=== PATIENT | male | born 1960 | race Caucasian/White ===

== ENCOUNTER 2018-08-08 19:43 | Emergency (ER) | payer OTHER, MEDICAID, SELFPAY ==
[2018-08-08 19:45] VITALS: BP 179/98; PULSE 90; RESP 16; TEMP 36.9; O2SAT 97; BMI 29.8
--- NOTE | 2018-08-08 20:32 | ED.RN ---
PT WAS CALLED FROM TRIAGE TO TAKE BACK TO ER ROOM 7. PT STATED THAT HAD ALREADY SWALLOWED 4 CUPS OF WATER NOW. PT DRANK WATER IN FRONT OF THIS RN AND DENIED HAVING ANY OTHER DIFFICULTIES SWALLOWING OR BRATHING. THIS RN DID EXPLAIN HE STILL COULD BE SEEN, BUT PT REFUSED AND STATED THAT HE THOUGHT IT WASN'T STUCK ANY LONGER AND THE MEAT HAD PASSED.
--- NOTE | 2018-08-08 20:34 | NURSING ---
PT LEFT AT 2024
== END 2018-08-08 20:25 | disposition left against medical advice (07) ==
LOC: ED 21:01
PROVIDERS: Emergency Provider Emergency Medicine; Family Provider Family Medicine; PCP Family Medicine
DX: K22.2 Esophageal obstruction (principal); Z53.21 Procedure and treatment not carried out due to patient leaving prior to being seen by health care provider

== ENCOUNTER 2019-04-21 18:18 | Emergency (ER) | payer MEDICAID, SELFPAY ==
[2019-04-21 18:19] VITALS: BP 154/89; PULSE 81; RESP 17; TEMP 36.9; O2SAT 97; BMI 31.6
[2019-04-21 18:28] VITALS: RESP 16
--- NOTE | 2019-04-21 18:45 | ED.VIS.GEN ---
History of Present Illness Chief Complaint: Foreign Body Informant: Patient, Family Onset: Today Narrative: Presents for concerns for food obstruction. Reports 5:30 PM was eating sloppy Ganesh sandwich and then lettuce, reports felt something stuck. States he tried drinking fluids Coca-Cola, lettuce was coming up therefore concerns for obstruction of this. Similar symptoms reports approximately a year ago came to the ED however past. He states prior to that few years back had a steak impaction that required EGD. He did not recall the physician's name however reviewing records March [address] Palomo. Reports he followed up as an outpatient for colonoscopy repeat EGD at that time. Patient is edentulous, he reports he cuts his lettuce down and food down small. Remote tobacco history of COPD. Reports uses inhaler only as needed. No other daily medications. States currently sitting there he feels no discomfort. Prior similar symptoms: Yes Past Medical History - Allergies and Home Meds Allergies/Adverse Reactions: Allergies No Known Allergies Allergy (Verified 04/21/19 18:18) Primary Care Physician: Basim Helton MD [Primary Care Provider] - Smoking Status: Former smoker Review of Systems General: Denies: Chills, Fever, Sweats Eyes: Denies: Visual changes - bilaterally, Diplopia ENT: Denies: Rhinorrhea, Sore throat Cardiovascular: Denies: Chest pain, Palpitations Respiratory: Denies: Dyspnea, Cough, Dyspnea on exertion Gastrointestinal: Denies: Abdominal pain, Nausea, Vomiting, Diarrhea, Melena, Hematochezia Genitourinary: Denies: Dysuria, Hematuria, Frequency Musculoskeletal: Denies: Back pain, Extremity Pain Skin: Denies: Rash, Wounds Neurological: Denies: Headache, Weakness, Numbness Physical Exam Vital Signs/Narrative: Vital Signs Temp Pulse Resp BP Pulse Ox 04/21/19 18:28 16 04/21/19 18:19 98.5 F 81 17 154/89 H 97 Inital Vital Signs reviewed: Yes General: Well nourished, Well developed, No Acute Distress Head: Normocephalic, Atraumatic Eyes: Perrl, EOMI ENT: Moist mucous membranes, No rhinorrhea, - - Edentuous, airway patent, no distress. No stridor. Neck: Supple, Nontender Cardiovascular: Regular rate, Regular rhythm, No murmurs Respiratory: No distress, CTA bilaterally, Chest nontender Abdomen: Soft, Nontender, Nondistended, Normal bowel sounds Back: Nontender, Normal Inspection Extremities: Nontender, No edema Skin: Normal color, No rash Neurological: Alert, Oriented x3, Cranial nerves II-XII grossly intact, Normal Strength, Normal Sensation Psychological: Normal affect, Normal Mood Diagnostic/Tx/Re-eval - Medical Decision Making Patient nontoxic, no acute distress. Patient monitored, was allowed to drink 2 carbonated drinks in the ED, there was no vomiting afterwards. He had occasional burping. Patient tolerating 2 drains, no concerns for complete obstruction. Could be residuals discussed with patient continuing slow drinks at home and soft foods. With him having endoscopy by GI previously who are not available discussed follow-up with him he like to follow-up with [facility] therefore given Dr. Julio's information who is dry wall installations mechanic. Signs and symptom discussed return, he will be placed on omeprazole daily. All questions were answered. ED Disposition - Plan for ED Patient: Disposition: Home or Assisted Living Diagnosis: Food impaction of esophagus Instructions: ESOPHAGEAL FOREIGN BODY, Resolved Prescriptions: Omeprazole 40 mg PO DAILY #30 capsule. Transmission Status: P[id number] Referrals: Jeanna Julio MD [STAFF PHYSICIAN] - 3-5 Days Basim Helton MD [Primary Care Provider] -
[2019-04-21 19:09] VITALS: RESP 16
--- NOTE | 2019-04-21 19:09 | ED.RN ---
PATIENT TOLERATING COKE. ABLE TO KEEP IT DOWN. DR Jack DEL CID NOTIFIED.
== END 2019-04-21 19:10 | disposition home or self-care (01) ==
PROVIDERS: Emergency Provider Emergency Medicine; Family Provider Family Medicine; PCP Family Medicine
DX: T18.128A Food in esophagus causing other injury, initial encounter (principal); X58.XXXA Exposure to other specified factors, initial encounter; Y93.9 Activity, unspecified; Y92.9 Unspecified place or not applicable; Y99.9 Unspecified external cause status; J44.9 Chronic obstructive pulmonary disease, unspecified; Z87.891 Personal history of nicotine dependence
CPT/HCPCS: 99282

== ENCOUNTER 2025-03-04 11:01 | Emergency (ER) | payer OTHER, SELFPAY ==
[2025-03-04] VITALS (9 sets, daily range): BP systolic 90–149; BP diastolic 57–78; PULSE 55–78; RESP 14–16; TEMP 36.1–36.6; O2SAT 95–100; BMI 27.3
--- NOTE | 2025-03-04 11:53 | EDS_ITS ---
HPI HPI - GI History of Present Illness Chief Complaint: Foreign Body Detail of Chief Complaint: Esophageal food impaction Informant: patient Narrative Narrative: Patient presents to the emergency department with complaint of of inability to swallow. Patient states that he was eating dinner last night and had some broccoli with mac & cheese and a bratwurst when he felt that food got stuck in his throat. Patient is a dentulous. Patient states that he had a similar episode about a year ago but while waiting in triage his food impaction resolved therefore he did not require any type of intervention. Patient states that he was able of get some of the food to come up. He tried to drink Sprite but could not. He was able to sleep last night. But this morning again he is unable to eat breakfast or swallow any food or drink. [facility] Medical History (Updated 03/04/25 @ 12:[address] Abdiel Mehta, ) COPD (chronic obstructive pulmonary disease) Hypertension Home Medications ?Medication ?Instructions ?Recorded ?Last Taken ?Type albuterol sulfate 90 mcg/actuation 2 puff inhalation B ID PRN 07/12/16 Unknown History aerosol inhaler (Ventolin HFA) Shortness Of Breath omeprazole 40 mg capsule,delayed 40 mg PO DAILY ##30 0 04/21/19 Unknown Rx release Allergy/AdvReac Type Severity Reaction Status Date / Time No Known Allergies Allergy Verified 03/04/25 11:03 Social History Smoking Status: Former smoker ROS ROS ED Review of Systems ROS Unobtainable: other Constitutional Constitutional ED: Reports lethargy; Denies chills, fever(s), sweats or weight loss Eyes Eyes: Denies blurry vision, change in vision or diplopia ENT ENT ED: Denies rhinorrhea or sore throat Cardiovascular Cardiovascular: Denies chest pain, orthopnea or racing heartbeat Respiratory/Chest Respiratory/Chest: Denies cough, dyspnea, dyspnea on exertion, orthopnea or sputum Gastrointestinal Gastrointestinal: Reports other Details: Difficulty swallowing ; Denies abdominal pain, diarrhea, nausea or vomiting Genitourinary Genitourinary ED: Denies dysuria, hematuria or urinary frequency Musculoskeletal Musculoskeletal: Denies arthralgias, back pain, myalgias or neck pain Integumentary Denies abscess, Abrasions or rash Neurologic Neurologic: Denies headache(s) or weakness Psychiatric Psychiatric: Denies anxiety, depression or suicidal thoughts Endocrine Endocrinology: Denies polydipsia, polyphagia or polyuria Hematologic/Lymphatic Hematologic/Lymphatic: Denies easy bleeding, easy bruising or lymphadenopathy Allergic/Immunologic Allergic/Immunologic ED: Denies mouth swelling, tongue swelling or urticaria EXAM Physical Exam Const Vital Signs: 03/04/25 11:02 Temperature 98 F Temperature Source Temporal Pulse Rate 73 Respiratory Rate 14 Blood Pressure 149/72 H Blood Pressure Mean 97 Pulse Ox 98 Oxygen Delivery Method Room Air Positive well nourished and well developed General Appearance ED: well developed and NAD HEENT Reports TM's clear and moist mucous membranes normocephalic and atraumatic; Negative for trauma or tenderness Tympanic Membrane ED: Yes TM's clear Eyes PERRL and EOMs intact bilaterally General Eye ED: Negative for pale conjunctiva or scleral icterus Neck no lymphadenopathy, supple and no JVD General: Negative for tenderness Chest Wall inspection of chest normal and palpation of chest normal Chest: Negative for tenderness Resp normal respiratory effort and clear to auscultation bilaterally Effort and Inspection: Negative for respiratory distress or pain with movement Auscultation: Negative for rhonchi, wheezes or diminished lung sounds Cardio regular rate, regular rhythm, S1 normal heart sound, S2 normal heart sound and no murmurs Peripheral Pulses: pulses 2+ throughout GI normal to inspection, nondistended, normoactive bowel sounds, soft to palpation, non-tender, non-distended and no masses Back/Spine no CVA tenderness and no thoracic nor lumbar tenderness Extremity normal to inspection General Extremety ED: Negative for edema General Extremity: Negative for edema Neuro oriented x3, CN's II-XII intact bilaterally, no sensory deficits noted and gait normal Sensorium / Orientation: awake, alert, oriented to person, oriented to place and oriented to time Motor Exam: strength 5/5 throughout and strength abnormal Psych mental status grossly normal Skin no rashes or lesions noted and no wounds MDM MDM MDM Narrative Medical decision making narrative: Patient presents with esophageal food impaction. I attempted to have the patient drink some cola however he was unable to swallow it and immediately came back up. Discussed case with general surgeon on-call who will be tied up in the OR with multiple acute cases and asked that we contact Dr. Landeros the sanitarian inspector. Dr. Landeros the did call back and is willing to take the patient to endoscopy for an upper scope to relieve the esophageal food impaction. Discharge Plan Dx/Rx/DC Orders Clinical Impression: Esophageal obstruction due to food impaction Disposition Disposition: Acute Care Hospital [facility]
[2025-03-04] MEDS: Glucagon 1 MG/ML Syringe IV (12:00)
[2025-03-04] MEDS: Lactated Ringers 1,000 ML 15 ML IV (12:40)
--- NOTE | 2025-03-04 12:53 | PRE.ANES_ITS ---
ASA Classification* ASA Classification ASA Classification: 3 (COPD, GERD) Assessment & Plan Anesthesia* Anesthesia Assessment Anesthesia Assessment: Discussed sedation and/or anesthesia options, risks, benefits, and alternatives with patient/parents/legal guardian/POA. Questions invited. The patient/parents/legal guardian/POA seems to understand and agrees to proceed with anesthesia plan. Reviewed the physical assessment, medical history, allergy history and patient home medications list prior to surgery/procedure/anesthetic and documented any changes. Performed airway and anesthesia risk assessments. Patient states he has been NPO since 5 PM. Attempted some sprite 2 hours ago, but came right up. Will keep patient in sitting position to reduce risk of aspiration. Patient understands risk of aspiration but would like to proceed without ETT given long NPO status Anesthesia Type Anesthesia Type: MAC History Source History Obtained from:: Patient and Chart Anesthesia Focused Assessment* Temperature: 97.9 F Pulse Rate: 78 Blood Pressure: 146/68 Respiratory Rate: 16 Pulse Ox: 98 Oxygen Delivery Method: Room Air Airway Assessment Mouth opens: >3 cm Mallampati Score: II Teeth Condition: Missing Neck Range of motion (ROM): Full ROM Labs Anesthesia Preop lab: CBC CHEMISTRY COAG Pre-Assessment Diagnosis/Proposed Procedure Planned Operative Procedure(s): EGD / food bolus impactation Anesthesia History 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 When Was Last Pacemaker Check QUESTION #4 FULL TEXT: You/Your Family Experience fever (hyperthermia) with Anesthesia Last Oral Intake Last Oral intake: Last Oral Intake NPO since Meds taken in AM with sips of water? Meds patient instructed to take am of surgery PONV PONV - paraprofessional aide teacher: PONV - paraprofessional aide teacher Female HX of Motion Sickness HX of N/V After Surgery Non-Smoker Duration of Surgery greater than 60 minutes Number of Risk Factors PONV Score Height & Weight Height & Weight: Anesthesia: Height & Weight Height 5 ft 3 in 03/04/25 11:02 Weight: 70.1 kg 03/04/25 11:02 Body Mass Index (BMI) 27.3 11/25/25 11:02 Respiratory Assessment Respiratory Assessment - paraprofessional aide teacher: Respiratory Tract Infection Hx - paraprofessional aide teacher Hx Respiratory Tract Infection STOP Sleep Apnea STOP Sleep Apnea - paraprofessional aide teacher: STOP Sleep Apnea - paraprofessional aide teacher Hx Hypertension Hx Sleep Apnea CPAP BIPAP Do you snore loudly (louder than talking or can be heard Do you often feel tired/ fatigued/ sleepy during daytime? Has anyone observed you stop breathing during sleep? STOP Results QUESTION #5 FULL TEXT : Do you snore loudly (louder than talking or can be heard through closed doors)? 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 Specify any problems Hx of Preganancy in last 3 Months Nurse Filling Out Transfusion & Questions: Date: Time: Patient unable to answer at this time (ie. confused, unrespo /Reproduction History /Reproductive History - paraprofessional aide teacher: /Reproductive Hx- paraprofessional aide teacher Hx Now Gestational Age (in weeks): EDC: Hx Hx Para Hx Section SAB Does the father of the baby or his family experience fever w Father of the baby Malignant Hypertension history comment Active Medications Active Medications: Current Medications Generic Name Dose Route Start Last Admin Trade Name Freq PRN Reason Stop Dose Admin Lactated Ringer's 1,000 mls @ 15 mls/hr 03/04/25 12:45 03/04/25 12:40 IV 15 mls/hr .Q48H TREVOR Administration PFSH Medical History (Updated 03/04/25 @ 12:[address] Abdiel Mehta, ) COPD (chronic obstructive pulmonary disease) Hypertension Home Medications ?Medication ?Instructions ?Recorded ?Last Taken ?Type albuterol sulfate 90 mcg/actuation 2 puff inhalation B ID PRN 07/12/16 Unknown History aerosol inhaler (Ventolin HFA) Shortness Of Breath omeprazole 40 mg capsule,delayed 40 mg PO DAILY ##30 0 04/21/19 Unknown Rx release Allergy/AdvReac Type Severity Reaction Status Date / Time No Known Allergies Allergy Verified 03/04/25 11:03 Social History Smoking Status: Current every day smoker tobacco type: cigarettes Review of Systems (Anesthesia) ROS Narrative System reviewed and no additional complaints, except as documented. Physical Exam Const alert, oriented x3 and average body habitus Resp normal respiratory effort, normal air movement and clear to auscultation bilaterally Cardio regular rate, regular rhythm and no murmurs; Negative for diaphoretic
--- NOTE | 2025-03-04 13:15 | EGD_PTH ---
PATIENT: SMAUEL HUNTER LOC: ED U#:[id number] AGE/SX: 64/M ROOM: RE03/04/[address]: Dr. Abdiel Mehta DO : 1960 BED: DIS: 03/04/2025 SPEC #: [id number] RECD: 03/04/25 18:09 STATUS: CHERI RADHA #: [id number] TANISHA: 03/04/25 13:[address]: Abdiel Mehta DEPT: SURGICAL PATHOLOGY RECD BY: Jerry Calles ENTERED: 03/05/25 10:23 SP TYPE: EGD BIOPSY ARELIS DR: Dr. Basim Helton MD Tissues: A - Gastric mucous membrane B - Duodenum, NOS C - Esophagus, NOS Procedures: Surgery Specimen Level IV HEADER OPERATION: EGD, foreign body removal PRE-OP DIAGNOSIS: Esophageal obstruction due to food impaction TISSUE SUBMITTED: A- Gastric body biopsy, B- Duodenum biopsy, C- Distal esophagus biopsy MICROSCOPIC DIAGNOSIS A. Stomach, body, biopsy: - Oxyntic mucosa with mild chronic inflammation. - Negative for Helicobacter-like organisms (H&E). B. Small intestine, duodenum, biopsy: - Tyler gland hyperplasia with acute inflammation and gastric mucin cell metaplasia, suggestive of peptic injury. - Negative for increased intraepithelial lymphocytes. C. Esophagus, distal, biopsy: - Squamous mucosa with reactive changes and > 25 eosinophils per high power field. - Columnar mucosa with goblet cell metaplasia - see note. Note: The diagnosis depends on the location of the biopsy and the extent of the mucosal irregularity. If the biopsy originates from the tubular esophagus and the mucosal irregularity extends at least 1 cm above the top of the gastric folds, this represents Morrison mucosa. If the biopsy originates from the gastric cardia and/or the mucosal irregularity is less than 1 cm in extent, this represents intestinal metaplasia. MICROSCOPIC DESCRIPTION Slides are reviewed. GROSS DESCRIPTION A. Received in fixative is one container labeled with the patient's name and designated Gastric body biopsy. The specimen consists of multiple irregular fragments of lange tissue that in aggregate measure 1.2 x 0.5 x 0.1 cm. The specimen is totally submitted in one cassette. B. Received in fixative is one container labeled with the patient's name and designated Duodenum biopsy. The specimen consists of three irregular fragments of lange tissue that measure 0.3 to 0.5 cm. The specimen is totally submitted in one cassette. C. Received in fixative is one container labeled with the patient's name and designated Distal esophagus biopsy. The specimen consists of multiple irregular fragments of lange tissue that in aggregate measure 1.1 x 0.4 x 0.2 cm. The specimen is totally submitted in one cassette. SD 03/05/2025 CPT:28808p3
--- NOTE | 2025-03-04 13:42 | PCM.HP.STD ---
HPI - General General Date of Admission: 03/04/25 Date of Service: 03/04/25 Chief Complaint: Food impaction HPI Narrative SAMUEL HUNTER, is a 64 M who presents to the emergency department with complaint of of inability to swallow. Patient states that he was eating dinner last night and had some broccoli with mac & cheese and a bratwurst when he felt that food got stuck in his throat. Patient is a dentulous. Patient states that he had a similar episode about a year ago but while waiting in triage his food impaction resolved therefore he did not require any type of intervention. Patient states that he was able of get some of the food to come up. He tried to drink Sprite but could not. He was able to sleep last night. But this morning again he is unable to eat breakfast or swallow any food or drink. Patient had an upper endoscopy approximately 12 years ago for esophageal food impaction which had to be removed at that time. He does not take any medicines on a daily basis. He says that he does not have reflux on a daily basis. [facility] Medical History COPD (chronic obstructive pulmonary disease) Hypertension Home Medications ?Medication ?Instructions ?Recorded ?Last Taken ?Type albuterol sulfate 90 mcg/actuation 2 puff inhalation BID PRN 07/12/16 Unknown History aerosol inhaler (Ventolin HFA) Shortness Of Breath omeprazole 40 mg capsule,delayed 40 mg PO DAILY ##30 04/21/19 Unknown Rx release Allergy/AdvReac Type Severity Reaction Status Date / Time No Known Allergies Allergy Verified 03/04/25 11:03 Social History Smoking Status: Current every day smoker tobacco type: cigarettes ROS Constitutional Constitutional: Denies fatigue, fever(s), poor appetite, weight gain or weight loss Gastrointestinal Gastrointestinal: Denies belching, bloating, change in bowel habits, change in stool character, chewing difficulty, coffee ground emesis, constipation, cramping, diarrhea, dyspepsia, dysphagia, early satiety, excessive flatus, fecal incontinence, heartburn, hematemesis, hematochezia, hemorrhoids, loose stools, melena, nausea, odynophagia, rectal bleeding, tenesmus, vomiting or weight changes Vital Signs Vital Signs Vital Signs: 03/04/25 11:02 03/04/25 12:29 03/04/25 12:55 Temperature 98 F 97.9 F 97.9 F Temperature Source Temporal Pulse Rate 73 78 78 Respiratory Rate 14 16 16 Blood Pressure 149/72 H 146/68 H 146/68 H Blood Pressure Mean 97 94 Pulse Ox 98 98 98 Oxygen Delivery Method Room Air Room Air Weight Weight: 154 lb 8.705 oz Body Mass Index (BMI) 27.3 Physical Exam Const alert, oriented x3, no apparent distress and healthy appearing General Appearance: cooperative GI normal to inspection, nondistended, normoactive bowel sounds, soft to palpation, non-tender and non-distended Percussion: normal to percussion Rectal Exam: deferred Assessment & Plan Assessment/Plan (1) Esophageal obstruction due to food impaction: PLAN: Patient will undergo esophageal food disimpaction. He was explained alternatives, risk and benefits include not withstanding bleeding, infection, sepsis, perforation, need for emergent or to . He will have an ASA of 3.
--- NOTE | 2025-03-04 14:17 | OP.EGD_ITS ---
Patient Name: Rajeev Abdi Procedure Date: 03/04/2025 1:42 PM Date of : 1960 Age: 64 Procedure: Upper GI endoscopy Indications: Dysphagia, Foreign body in the esophagus Providers: Tony Landeros DO Medicines: Monitored Anesthesia Care Patient Profile: This is a 64 year old male. Refer to note in patient chart for documentation of history and physical. Patient has symptoms of dysphagia with both liquids and solids, chronic heartburn, chronic nausea, acute regurgitation and acute vomiting. Complications: No immediate complications. Procedure: Pre-Anesthesia Assessment: - Prior to the procedure, a History and Physical was performed, and patient medications and allergies were reviewed. The patient is competent. The risks and benefits of the procedure and the sedation options and risks were discussed with the patient. All questions were answered and informed consent was obtained. Patient identification and proposed procedure were verified by the physician in the pre-procedure area. Mental Status Examination: alert and oriented. Airway Examination: normal oropharyngeal airway and neck mobility. Respiratory Examination: clear to auscultation. CV Examination: normal. Prophylactic Antibiotics: The patient does not require prophylactic antibiotics. Prior Anticoagulants: The patient has taken no anticoagulant or antiplatelet agents. ASA Grade Assessment: II - A patient with mild systemic disease. After reviewing the risks and benefits, the patient was deemed in satisfactory condition to undergo the procedure. The anesthesia plan was to use monitored anesthesia care (MAC). Immediately prior to administration of medications, the patient was re-assessed for adequacy to receive sedatives. The heart rate, respiratory rate, oxygen saturations, blood pressure, adequacy of pulmonary ventilation, and response to care were monitored throughout the procedure. The physical status of the patient was re-assessed after the procedure. After obtaining informed consent, the endoscope was passed under direct vision. Throughout the procedure, the patient's blood pressure, pulse, and oxygen saturations were monitored continuously. The Endoscope was introduced through the mouth, and advanced to the third part of the duodenum. Small bowel enteroscopy was deemed necessary. The upper GI endoscopy was accomplished with ease. The patient tolerated the procedure well. Scope In: 1:55:57 PM Scope Out: 2:09:52 PM Total Procedure Duration Time 0 hours 13 minutes 54 seconds Findings: LA Grade D (one or more mucosal breaks involving at least 75% of esophageal circumference) esophagitis with no bleeding was found 34 to 40 cm from the incisors. Biopsies were taken with a cold forceps for histology. Verification of patient identification for the specimen was done. Estimated blood loss was minimal. Food was found in the middle third of the esophagus. Removal was accomplished with a Payton net. Verification of patient identification for the specimen was done. Estimated blood loss was minimal. Diffuse severe inflammation characterized by erosions, erythema, friability and granularity was found in the entire examined stomach. Biopsies were taken with a cold forceps for histology. Biopsies were taken with a cold forceps for Helicobacter pylori testing. Verification of patient identification for the specimen was done. Estimated blood loss was minimal. Many non-bleeding linear duodenal ulcers with no stigmata of bleeding were found in the entire duodenum. The largest lesion was 5 mm in largest dimension. Biopsies were taken with a cold forceps for histology. Verification of patient identification for the specimen was done. Estimated blood loss was minimal. Impression: - LA Grade D erosive esophagitis with no bleeding. Biopsied. - Food in the middle third of the esophagus. Removal was successful. - Chronic gastritis. Biopsied. - Non-bleeding duodenal ulcers with no stigmata of bleeding. Biopsied. Recommendation: - Discharge patient to home. - Resume previous diet. - Continue present medications. - Await pathology results. - Repeat upper endoscopy in 3 months for surveillance. - Pantoprazole 40 mg p.o. twice daily Procedure Code(s): --- Professional --- 84397, Small intestinal endoscopy, enteroscopy beyond second portion of duodenum, not including ileum; with removal of foreign body(s) 38023, Small intestinal endoscopy, enteroscopy beyond second portion of duodenum, not including ileum; with biopsy, single or multiple CPT copyright 2021 [employer]. All rights reserved. The codes documented in this report are preliminary and upon biodiesel product manager review may be revised to meet current compliance requirements. Tony Landeros DO 03/04/2025 2:16:34 PM This report has been signed electronically. Number of Addenda: 0 Note Initiated On: 03/04/2025 1:42 PM
--- NOTE | 2025-03-04 14:17 | OP.PROVAT_ITS ---
03/04/2025 Basim Helton MD Re : Upper GI endoscopy procedure for Rajeev Abdi Dear Dr. Helton This procedure was performed on Tuesday, March 04, 2025. My impressions and recommendations are as follows: Impressions : - LA Grade D erosive esophagitis with no bleeding. Biopsied. - Food in the middle third of the esophagus. Removal was successful. - Chronic gastritis. Biopsied. - Non-bleeding duodenal ulcers with no stigmata of bleeding. Biopsied. Recommendations : - Discharge patient to home. - Resume previous diet. - Continue present medications. - Await pathology results. - Repeat upper endoscopy in 3 months for surveillance. - Pantoprazole 40 mg p.o. twice daily My findings are described in the full procedure note, which is enclosed. If I can be of further assistance, please feel free to contact me at . Sincerely, Tony Friend, 03/04/2025 2:16:34 PM This report has been signed electronically.
--- NOTE | 2025-03-04 14:24 | PCM.POST.ANE ---
Anesthesia: Postop Eval I Current Vital Signs Temperature: 97.4 F Pulse Rate: 57 Blood Pressure: 90/58 Respiratory Rate: 16 Pulse Ox: 95 Oxygen Delivery Method: Room Air Assessment Airway patent: Yes Spontaneous unlabored respirations: Yes Mental status: Awake and Calm nausea: No Vomiting: No Anesthesia Complication: No Fluid Hydration Crystalloid volume administer (ml): 700 Total IV fluid infused: 700 Progress Note Anesthesia document: Postop Eval 1 completed: Yes
--- NOTE | 2025-03-04 14:58 | PCM.POSTANE2 ---
Anesthesia Postop Eval I Sum Postop Eval Completion status Anesthesia document: Postop Eval 1 completed: Yes Anesthesia Postop Eval I Summary Anesthesia Postop Eval I Summary: Anesthesia Postop Eval I: Assessment Summary Airway patent Yes 03/04/25 14:25 [email or web address] Spontaneous unlabored Yes 03/04/25 14:25 [email or web address] respirations Mental status Awake,Calm 03/04/25 14:25 [email or web address] nausea No 03/04/25 14:25 [email or web address] Vomiting No 03/04/25 14:25 [email or web address] Anesthesia Postop Eval I: Fluid Summary Crystalloid volume administer 700 03/04/25 14:25 [email or web address] (ml) Colloids volume administered ( ml) Blood Product volume administered (ml) Total IV fluid infused 700 03/04/25 14:25 [email or web address] Anesthesia Postop Eval I: Summary Notes Anesthesia Complication No 03/04/25 14:25 [email or web address] Anesthesia Complication Comment: Post-operative progress note Anesthesia: Postop Eval II Evaluation Mental status: Awake Pain Level: 0 nausea: No Vomiting: No Complications Anesthesia Complication: No
[2025-03-04] MEDS: Pantoprazole Sodium 40 MG in 0.9% Normal Saline (100mL MB+) 100 ML 300 MG IV (15:26)
== END 2025-03-04 15:42 | disposition home or self-care (01) ==
PROVIDERS: Internal Medicine Gastroenterology; Emergency Provider Emergency Medicine; PCP Family Medicine; Visit Provider Emergency Medicine
PROC: 0DJ08ZZ Inspection of Upper Intestinal Tract, Via Natural or Artificial Opening Endoscopic (ICD-10-PCS; CPT 43235; principal; 2025-03-04 13:10)
DX: T18.128A Food in esophagus causing other injury, initial encounter (principal); X58.XXXA Exposure to other specified factors, initial encounter; D13.2 Benign neoplasm of duodenum; K22.2 Esophageal obstruction; K29.50 Unspecified chronic gastritis without bleeding; K26.9 Duodenal ulcer, unspecified as acute or chronic, without hemorrhage or perforation; K22.70 Barrett's esophagus without dysplasia; K21.00 Gastro-esophageal reflux disease with esophagitis, without bleeding; Z87.891 Personal history of nicotine dependence
CPT/HCPCS: 43247; 43239; 88305; 96365; 99284; A4216; J1610; J2405